=== PATIENT | male | born 1955 | race Caucasian/White ===

== ENCOUNTER → 2020-03-08 | Outpatient (CLI) | payer OTHER ==
[~2020-03-08] MED LIST: CELEXA 20 MG TA20 M1 PO; CELEXA 20 MG TA20 MG PO; DOCUSATE SODIU100 MG PO; ENDOCET 10-3251 EACH; GLIPIZIDE XL10 MG PO; GLUCOPHAGE1000 MG PO; MOBIC15 MG PO; PREDNISONE50 MG PO; PRILOSEC40 MG PO
== END ==
LOC: CAT 13:14
PROVIDERS: ATTEND Family Medicine
DX: Z13.6 Encounter for screening for cardiovascular disorders (principal); I25.10 Atherosclerotic heart disease of native coronary artery without angina pectoris; E78.00 Pure hypercholesterolemia, unspecified

== ENCOUNTER → 2020-04-06 | Outpatient (CLI) | payer OTHER | LOC: SJCVCIMAG 12:31 | PROVIDERS: ATTEND Internal Medicine Cardiovascular Disease | DX: I07.1 Rheumatic tricuspid insufficiency (principal); I11.9 Hypertensive heart disease without heart failure; I45.10 Unspecified right bundle-branch block; I25.10 Atherosclerotic heart disease of native coronary artery without angina pectoris; I10 Essential (primary) hypertension; E78.5 Hyperlipidemia, unspecified; Z79.82 Long term (current) use of aspirin; Z79.899 Other long term (current) drug therapy ==

== ENCOUNTER 2020-04-14 10:29 | Observation (INO) | payer OTHER ==
[~2020-04-14] VITALS: Ht 180.3 cm; Wt 95.3 kg
[2020-04-14] VITALS (11 sets, daily range): BP systolic 112–144; BP diastolic 76–96
[~2020-04-14 10:29] MED LIST changes: +ASA81BEC PO; +JANUVIA100 MG PO; +UNICOMPLEX M TA1 TA1 PO; +VASCEPA1 GM PO; +ZESTRIL10 MG PO
--- NOTE | 2020-04-14 12:03 | CATHLAB ---
[facility] [address] [place] [address] INVASIVE PROCEDURE REPORT Name: TUAN MAYS Room #: 209-P ADM Lyla MBeau#: [id number] Admission: 04/14/20 Attend Phys: Varun Key MD Discharge: Date of : 53 Report #: [id number] THIS REPORT FOR: cc: Figueroa Morales James A. DO Park, Jin S. MD ~ APPROVED REPORT Study performed: 04/14/2020 07:48:10 Patient Details The patient is a 64 year-old male Event Personnel Varun Key Supervisor Sewer Maintenance, Casandra Randall RN RN, Amanda Borrego RTR, VINCENZO Engle, Oliverio Mcgovern RTR Monitor Procedures Performed Art Access - R femoral artery* HERMES Place w/wo Plasty Single RCA 110798 Left Heart Cath w/or w/o Coronaries [id number] LHC Hemostasis w/ Mynx 35735 Initial Mod Sed Same Phys/QHP Gr5y 819529 83623 Mod Sed Same Phys/QHP Ea 851586 Indication Dyspnea, Positive stress test Risk Factors HypercholesterolemiaPhysical Activity, Coronary Artery DiseaseHypertension, Diabetes Procedure Narrative The Right Groin^ was infiltrated with 1% Lidocaine subcutaneous anesthesia. A PINNACLE 4FR Sheath #[id number] sheath was inserted into the RFA^. Coronary angiography was performed using coronary diagnostic catheters. The right coronary system was accessed and visualized with a JR4 catheter. The left coronary system was accessed and visualized with a JL4 catheter. Pre-demployment femoral angiogram was performed . Closure device was deployed with a 6 Fr MYNX [employer]. The patient tolerated the procedure well and there were no complications associated with the procedure. There was no hematoma. Intraoperative Conscious Sedation Sedation start time: 814 Case end Time: [facility] [address] [place] [address] INVASIVE PROCEDURE REPORT Name: TUAN MAYS RIEGELWOOD Room #: 209-P [facility] [place] ..#: [id number] Admission: 04/14/20 Attend Phys: Varun Key MD Discharge: Date of : 53 Report #: [id number] Fentanyl 50 mcg Versed 1 mg Fluoro Time: 11.70 minutes Dose: DAP 94127.00 cGycm2 3362 mGy Contrast Type and Amount: Omnipaque 160 ml Coronary Angiography The patient's coronary anatomy is right dominant. Diagnostic Cath Left Main This is a large-caliber vessel, patent with no flow-limiting lesions. LAD The LAD is a moderate-sized caliber vessel, traverses the anterior wall and wraps around the apex. There is mild disease in the proximal segment. There is a mild to moderate stenosis in the midsegment, 30 to 40%. Diagonal 1 This is a patent vessel, with no flow-limiting lesions. Circumflex Left circumflex artery is a moderate-sized caliber vessel with mild disease in the midsegment. OM1 This is a moderate-sized caliber vessel, with mild disease proximally. Supplies several small branches as it travels down the lateral wall. Right Coronary The RCA is a dominant vessel with a mild to moderate stenosis in the midsegment with calcification. R PDA There is a moderate stenosis in the proximal segment. RPLV There is a severe stenosis in the proximal segment, 80%. Left Ventriculography Left Ventriculography was not performed. Ejection Fraction was 55-60% based off patient's Nuclear Cardiac Stress Test. An LVEDP was measured and there is no gradient across the outflow tract. Hemodynamics The aortic pressure is 131/84 mmHg with a mean of 105 mmHg. The left ventricular pressure is 145/9 mmHg with a mean of mmHg. The left ventricular end diastolic pressure is 15 mmHg. PCI Technique Lesion Percutaneous coronary intervention was performed on the first right posterior lateral segment. The lesion stenosis prior to intervention was 80% with LACI 3 flow. A VISTA 6FR JR 4 #[id number] Guide Catheter was used to engage the ostium. A Luge Wire .014 x 182CM #[id number] [facility] [address] [place] [address] INVASIVE PROCEDURE REPORT Name: TUAN MAYS Room #: 209-P ADM IN M.R.#: [id number] Admission: 04/14/20 Attend Phys: Varun Key MD Discharge: Date of : 53 Report #: [id number] Interventional Guidewire was used to cross the lesion. BALLOON DILATION A Balloon catheter Euphora RX 2.25 x 10 #[id number] was inserted and inflated up to 10.00atm for 9seconds. Additional Inflation: 10.00atm for 18seconds. STENT DEPLOYMENT A drug-eluting stent RESOLUTE GILMAR RX 2.5 X 12 #[id number] was inserted and inflated up to 12.00atm for 21seconds. POST STENT DEPLOYMENT BALLOON DILATION A Balloon catheter Euphora NC RX 2.5 x 6 #[id number] was inserted and inflated up to 16.00atm for 18seconds. Additional Inflation: 16.00atm for 17seconds. Final angiography reveals 0 % stenosis with LACI 3 flow. Conclusion 1. Successful insertion of a drug-eluting stent into the proximal segment of the RPL vessel. 2. Mild to moderate disease in the LAD and PDA. 3. Normal RV systolic function. 4. Recommend dual antiplatelet therapy and aggressive risk factor management. <ELECTRONICALLY SIGNED> By: Varun Key MD 04/14/201201 01 01 Varun Key MD /INF
[2020-04-15 00:13] VITALS: BP 131/91
--- NOTE | 2020-04-15 03:47 | NUR ---
ASSESSMENTS CHARTED, MEDS CHARTED GIVEN. PATIENT RESTING IN BED DURING SHIFT. OFF BEDREST PRIOR TO SHIFT CHANGE. RIGHT GROIN SITE IS DRY INTACT AND SOFT. RECEIVED STENT IN DISTAL RCA. PLAN OF CARE IS TO GO HOME IN AM. UP AT [facility], FALL PRECAUTIONS IN PLACE DURING SHIFT.
[2020-04-15 04:32] VITALS: BP 147/97
[2020-04-15 05:04] LABS: HEMATOCRIT 44.1 % (42.0-52.0); HEMOGLOBIN 15.1 gm/dL (14.0-18.0); MCH 29.9 pg (26.0-34.0); MCHC 34.2 g/dL (28.0-37.0); MCV 87.4 fL (80.0-100.0); RBC 5.04 mil/uL (4.50-6.00); RDW 13.3 % (10.5-14.5); WBC 7.9 thou/uL (4.0-11.0)
[2020-04-15 05:10] LABS: ALBUMIN 3.8 g/dL (3.4-5.0); CALCIUM 8.8 mg/dL (8.5-10.1); POTASSIUM 4.4 mmol/L (3.5-5.1); TOTAL BILIRUBIN 0.5 mg/dL (0.2-1.0)
[2020-04-15] MEDS ORDERED: EFFIENT10 MG PO (07:42)
[2020-04-15] MEDS ORDERED: LIPITOR40 MG PO (07:42)
[2020-04-15 08:07] VITALS: BP 131/85
--- NOTE | 2020-04-15 08:27 | EKG ---
[facility] [place] [address] ELECTROCARDIOGRAM REPORT Name: TUAN MAYS Room #: 209-P ADM Lyla M.R.#: [id number] Admission: 04/14/20 Attend Phys: Varun Key MD Discharge: Date of : 53 Report #: [id number] THIS REPORT FOR: cc: Figueroa Morales James A. DO Lundgren, Craig H. MD [facility] ~ THIS REPORT FOR: //name// [facility] Test Date: 2020-04-14 Test Time: 10:51:46 Pat Name: TUAN MAYS Department: Room: 209 P Gender: M Data Entry Specialist: SHAYY : 1955 Requested By: Varun Key Order Number: [id number] MD: Sheldon Heath Measurements Intervals [place] Rate: 64 P: 69 KS: 195 QRS: 21 QRSD: 95 T: 36 QT: 396 QTc: 409 Interpretive Statements Sinus rhythm Normal tracing Compared to ECG 10/08/2013 10:21:26 No significant changes Electronically Signed On 04-15-2020 8:26:46 CDT by Sheldon Heath [email or web address] <ELECTRONICALLY SIGNED> By: Sheldon Heath MD, FACC 04/15/20 0826 1051 1051 Sheldon Heath MD, [facility] /EPI
--- NOTE | 2020-04-15 08:52 | EKG ---
[facility] [place] [address] ELECTROCARDIOGRAM REPORT Name: TUAN MAYS Room #: 209-P ADM Lyla M.R.#: [id number] Admission: 04/14/20 Attend Phys: Varun Key MD Discharge: Date of : 53 Report #: [id number] THIS REPORT FOR: cc: Figueroa Morales James A. DO Lundgren, Craig H. MD [facility] ~ THIS REPORT FOR: //name// [facility] Test Date: 2020-04-15 Test Time: 07:16:11 Pat Name: TUAN MAYS Department: Room: 209 P Gender: M Silk Screen Layout Drafter: SHAYY : 1955 Requested By: Varun Key Order Number: [id number] MD: Sheldon Heath Measurements Intervals [place] Rate: 65 P: 76 MD: 178 QRS: 0 QRSD: 101 T: 55 QT: 386 QTc: 402 Interpretive Statements Sinus rhythm Normal tracing Compared to ECG 04/14/2020 10:51:46 No significant changes Electronically Signed On 04-15-2020 8:52:22 CDT by Sheldon Heath [email or web address] <ELECTRONICALLY SIGNED> By: Sheldon Heath MD, FACC 04/15/20 0852 5 5 Sheldon Heath MD, [facility] /EPI
[2020-04-15 09:08] VITALS: BP 131/85
[2020-04-15 09:22] VITALS: BP 131/85
--- NOTE | 2020-04-15 11:32 | NUR ---
ASSUMMED PT CARE AT APPROXIMATELY 0700. PT A&O X4. ASSESSMENT CHARTED. FALL PRECAUTIONS IN PLACE. PT DENIES HAVING CHEST PAIN. PT DENIES HAVING SOB. PT DENIES HAVING ACUTE PAIN. R GROIN C/D/I. NO HEMATOMA. PT DISCHARGING HOME C SELF CARE. PT RECEIVED DISCHARGE EDUCATION. PT STATED UNDERSTANDING AND DENIED HAVING FURTHER QUESTIONS. PT AMBULATES STEADY/INDEPENDENT. AWAITING PT'S TO ARRIVE. PT PREFERRED AMBULATING OFF UNIT. PT WILL RECEIVE HOSPITAL TRANSPORT OFF UNIT. VITAL SIGNS STABLE. INFORMED JUANITA OSUNA OF HYPERGLYCEMIA. JUANITA OSUNA STATED UNDERSTANDING C NO NEW ORDERS. PT COMFORTABLE. PT DENIES HAVING FURTHER CONCERNS.
== END 2020-04-15 12:10 | disposition home or self-care (01) ==
LOC: CATH 10:29 → 2N 10:30 → CATH 11:14 → 2N 04-15 12:10
PROVIDERS: ADMIT Internal Medicine Cardiovascular Disease; ATTEND Internal Medicine Cardiovascular Disease
DX: I25.10 Atherosclerotic heart disease of native coronary artery without angina pectoris (principal); E11.9 Type 2 diabetes mellitus without complications; I10 Essential (primary) hypertension; E78.00 Pure hypercholesterolemia, unspecified; Z79.899 Other long term (current) drug therapy

== ENCOUNTER → 2020-11-28 | Outpatient (CLI) | payer OTHER ==
[~2020-11-28] MED LIST changes: +EFFIENT10 MG PO; +LIPITOR40 MG PO
[2020-11-28 16:22] LABS: CREATININE 1.1 mg/dL (0.7-1.3)
== END ==
LOC: CAT 15:25
PROVIDERS: ATTEND Nurse Practitioner
DX: J18.1 Lobar pneumonia, unspecified organism (principal); I25.10 Atherosclerotic heart disease of native coronary artery without angina pectoris

== ENCOUNTER → 2021-05-05 | Outpatient (CLI) | payer OTHER | LOC: SJCVCIMAG 07:36 | PROVIDERS: ATTEND Internal Medicine Cardiovascular Disease | DX: I45.10 Unspecified right bundle-branch block (principal); I25.10 Atherosclerotic heart disease of native coronary artery without angina pectoris; I10 Essential (primary) hypertension; E78.00 Pure hypercholesterolemia, unspecified; E11.9 Type 2 diabetes mellitus without complications; E78.5 Hyperlipidemia, unspecified; Z88.1 Allergy status to other antibiotic agents; Z79.82 Long term (current) use of aspirin; Z79.84 Long term (current) use of oral hypoglycemic drugs; Z79.899 Other long term (current) drug therapy; R06.00 Dyspnea, unspecified ==